=== PATIENT | female | born 1970 | race Caucasian/White ===

== ENCOUNTER 2019-08-20 14:26 | Outpatient (CLI) | payer BC ==
--- NOTE | 2019-08-20 15:39 | BD ---
BONE DENSITOMETRY USING DEXA: Date: 08/20/2019 HISTORY: Postmenopausal screening for osteoporosis. FINDINGS: Lumbar Spine: BMD (g/cm2) L1 0.764 T-Score: -2.1 Z-Score: -1.4 L2 0.771 T-Score: -2.3 Z-Score: -1.6 L3 0.778 T-Score: -2.8 Z-Score: -1.9 L4 0.899 T-Score: -1.5 Z-Score: -0.6 L1-L4 0.808 T-Score: -2.2 Z-Score: -1.4 Femoral Neck: 0.635 T-Score: -1.9 Z-Score: -1.1 Total Femur: 0.802 T-Score: -1.1 Z-Score: -0.6 The 10 year fracture risk for a major osteoporotic fracture is 5.4% and for a hip fracture is 0.7%. IMPRESSION: Osteopenia. POS: M[facility]
== END 2019-08-20 14:27 | disposition home or self-care (01) ==
LOC: BICMAMMO 14:26
PROVIDERS: ATTEND Obstetrics & Gynecology
DX: Z13.820 Encounter for screening for osteoporosis (principal); M81.0 Age-related osteoporosis without current pathological fracture; M85.859 Other specified disorders of bone density and structure, unspecified thigh
CPT/HCPCS: 77080

== ENCOUNTER 2022-12-02 14:18 | Outpatient (CLI) | payer OTHER | END 2022-12-02 14:19 | disposition home or self-care (01) | LOC: BICMAMMO 14:18 | PROVIDERS: ATTEND Obstetrics & Gynecology | DX: Z13.820 Encounter for screening for osteoporosis (principal); M81.0 Age-related osteoporosis without current pathological fracture; M85.89 Other specified disorders of bone density and structure, multiple sites | CPT/HCPCS: 77080 ==